=== PATIENT | male | born 1940 | race Caucasian/White ===

== ENCOUNTER → 2017-04-18 | Outpatient (CLI) | payer OTHER ==
[2017-04-25 14:44] LABS: Prostate Specific Antigen 22.8 ng/mL (<6.5)
== END ==
LOC: M LAB 09:47
PROVIDERS: ATTEND Specialist
DX: R97.20 Elevated prostate specific antigen [PSA] (principal)

== ENCOUNTER 2018-03-28 05:47 | Day surgery (SDC) | payer OTHER ==
[2018-03-28] MEDS ORDERED: ACETAMINOPHEN 325 MG TAB PO (06:00)
[2018-03-28 06:38] LABS: BEDSIDE GLUCOSE 103 MG/DL (83-110)
[2018-03-28] MEDS: PHENYLEPHRINE 2.5% OPHTH SOL 2ML OD (06:51)
[2018-03-28] MEDS: OFLOXACIN 0.3 % (OCUFLOX) OPTH SOL 5ML OD (06:51)
[2018-03-28] MEDS: TROPICAMIDE 1% OPHTH SOLN 2ML OD (06:51)
[2018-03-28] MEDS: LIDOCAINE 3.5 % 1ML OPHTH TOPICAL GEL OU (06:52)
[2018-03-28] MEDS: CYCLOPENTOLATE 2% OPHTH SOLN 2ML BTL OD (06:52)
[2018-03-28] MEDS ORDERED: PHENYLEPHRINE HCL 10 % OPHTH. SOL 5ML OD (07:00)
[2018-03-28] MEDS: ACETYLCHOLINE OPHTH SOLN 1% 2ML (MIOCHOL-E) As Ordered (07:25)
[2018-03-28] MEDS ORDERED: MIDAZOLAM INJ 2 MG/2 ML VIAL (J2250) As Ordered (07:25)
[2018-03-28] MEDS ORDERED: fentaNYL 100 MCG/2 ML INJECTION (J3010) As Ordered (07:25)
[2018-03-28] MEDS: BSS with VANC/TOB/EPI for EYE CASES IR (07:25)
[2018-03-28] MEDS: LIDOCAINE 1% SDV 5 ML VIAL As Ordered (07:25)
[2018-03-28] MEDS: TRIAMCINOLONE PRES FR 40 MG/ML 1ML(TRIESENCE)(OR EYE ONLY)(J3300 PER 1MG) As Ordered (07:25)
[2018-03-28] MEDS: POVIDONE-IODINE 5% OPHTH PREP SOL 30ML As Ordered (07:25)
[2018-03-28] MEDS: MOXIFLOXACIN IN BSS 0.25MG/0.25ML INTRACAMERAL INJ (OR EYE ONLY)(J2280) As Ordered (07:25)
[2018-03-28] MEDS: HEALON DUET (HEALON 10MG/ML 0.55ML & HEALON ENDOCOAT 30MG/ML 0.85ML) As Ordered (07:25)
[2018-03-28] MEDS: LIDOCAINE 2% W/EPIN INJ 20ML **PRES FREE As Ordered (07:35)
[2018-03-28] MEDS ORDERED: TRIMETHOBENZAMIDE 300 MG CAP PO (08:00)
[2018-03-28] MEDS: AcetaZOLAMIDE 500 MG ER CAP PO (08:12)
== END 2018-03-28 08:17 | disposition home or self-care (01) ==
LOC: M SDC 05:47
DX: H25.9 Unspecified age-related cataract (principal); I25.2 Old myocardial infarction; E11.9 Type 2 diabetes mellitus without complications; Z98.61 Coronary angioplasty status; Z91.040 Latex allergy status; Z79.899 Other long term (current) drug therapy; N40.0 Benign prostatic hyperplasia without lower urinary tract symptoms
CPT/HCPCS: 66984

== ENCOUNTER 2018-04-04 10:23 | Day surgery (SDC) | payer OTHER ==
[2018-04-04] MEDS: BSS with VANC/TOB/EPI for EYE CASES IR (07:00)
[~2018-04-04 10:23] MED LIST: ACETAMINOPHEN 325 MG TAB PO; PHENYLEPHRINE HCL 10 % OPHTH. SOL 5ML OS
[2018-04-04] MEDS ORDERED: TRIMETHOBENZAMIDE 300 MG CAP PO (10:30)
[2018-04-04] MEDS ORDERED: OFLOXACIN 0.3 % (OCUFLOX) OPTH SOL 5ML As Ordered (10:58)
[2018-04-04] MEDS ORDERED: TROPICAMIDE 1% OPHTH SOLN 2ML As Ordered (10:58)
[2018-04-04] MEDS ORDERED: CYCLOPENTOLATE 2% OPHTH SOLN 2ML BTL As Ordered (10:58)
[2018-04-04] MEDS ORDERED: PHENYLEPHRINE 2.5% OPHTH SOL 2ML As Ordered (10:58)
[2018-04-04] MEDS: LIDOCAINE 3.5 % 1ML OPHTH TOPICAL GEL OU (11:20)
[2018-04-04] MEDS: PHENYLEPHRINE 2.5% OPHTH SOL 2ML OS (11:20)
[2018-04-04] MEDS: CYCLOPENTOLATE 2% OPHTH SOLN 2ML BTL OS (11:20)
[2018-04-04] MEDS: TROPICAMIDE 1% OPHTH SOLN 2ML OS (11:20)
[2018-04-04] MEDS: OFLOXACIN 0.3 % (OCUFLOX) OPTH SOL 5ML OS (11:20)
[2018-04-04 11:21] LABS: BEDSIDE GLUCOSE 119 MG/DL (83-110)
[2018-04-04] MEDS ORDERED: MIDAZOLAM INJ 2 MG/2 ML VIAL (J2250) As Ordered (12:07)
[2018-04-04] MEDS ORDERED: fentaNYL 100 MCG/2 ML INJECTION (J3010) As Ordered (12:07)
[2018-04-04] MEDS: POVIDONE-IODINE 5% OPHTH PREP SOL 30ML As Ordered (12:09)
[2018-04-04] MEDS: HEALON DUET (HEALON 10MG/ML 0.55ML & HEALON ENDOCOAT 30MG/ML 0.85ML) As Ordered (12:09)
[2018-04-04] MEDS: LIDOCAINE 1% SDV 5 ML VIAL As Ordered (12:10)
[2018-04-04] MEDS: MOXIFLOXACIN IN BSS 0.25MG/0.25ML INTRACAMERAL INJ (OR EYE ONLY)(J2280) As Ordered (12:10)
[2018-04-04] MEDS: TRIAMCINOLONE PRES FR 40 MG/ML 1ML(TRIESENCE)(OR EYE ONLY)(J3300 PER 1MG) As Ordered (12:10)
[2018-04-04] MEDS: AcetaZOLAMIDE 500 MG ER CAP PO (13:00)
== END 2018-04-04 13:20 | disposition home or self-care (01) ==
LOC: M SDC 10:23
DX: H25.9 Unspecified age-related cataract (principal); I25.2 Old myocardial infarction; I10 Essential (primary) hypertension; E11.9 Type 2 diabetes mellitus without complications; Z79.82 Long term (current) use of aspirin; Z79.899 Other long term (current) drug therapy; N40.0 Benign prostatic hyperplasia without lower urinary tract symptoms; Z91.040 Latex allergy status
CPT/HCPCS: 66984